=== PATIENT | male | born 1950 | race Caucasian/White ===

== ENCOUNTER 2023-12-07 15:40 | Emergency (ER) | payer OTHER ==
[2023-12-07 15:47] VITALS: BP 118/54; PULSE 67; RESP 18; TEMP 98; BMI 30.9
[2023-12-07] MEDS ORDERED: ACETAMINOPHEN 500 MG TABLET (FP) ONE (17:28)
[2023-12-07] MEDS: ACETAMINOPHEN 500 MG TABLET (FP) PO ONE (17:39)
== END 2023-12-07 22:08 | disposition home or self-care (01) ==
LOC: JERFT 15:40
DX: S61.313A Laceration without foreign body of left middle finger with damage to nail, initial encounter (principal); W27.8XXA Contact with other nonpowered hand tool, initial encounter
CPT/HCPCS: 73140-TC-LT-FY; 99283-25